=== PATIENT | male | born 1965 | race Caucasian/White ===

== ENCOUNTER 2018-08-22 12:24 | Inpatient (IN) | payer MEDICAID, SELFPAY ==
[2018-08-22 13:32] LABS: Mean Corpuscular Hemoglobin 27.9 pg (27.0-31.0); Mean Corpuscular Volume 87.1 fL (78.0-98.0); Mean Platelet Volume 7.9 fL (7.4-10.4); Platelet Count 266 thou/uL (130-400); RBC Distribution Width 14.2 % (11.5-14.5); Red Blood Cell (RBC) Count 5.01 mill/uL (4.70-6.10); White Blood Cell (WBC) Count 10.9 thou/uL (4.8-10.8)
[2018-08-22 13:39] LABS: PTT 26.9 SEC (22.9-36.1); Prothrombin Time 13.1 SEC (12.0-14.7)
[2018-08-22 13:44] LABS: Band 4 % (5-11); Eosinophils 1 % (0-10); Lymphocytes 19 % (21-51); MDiff Complete? YES; Metamyelocyte 1 % (0-0); Monocytes 2 % (0-10); Myelocyte 5 % (0-0); Neutrophil 67 % (42-75); PLT Morphology Comment Appears Adequate; RBC Morphology Normal; Reactive Lymphocytes 1 % (0-10)
[2018-08-22 13:58] LABS: ALT (SGPT) 50 U/L (8-55); AST (SGOT) 34 U/L (5-34); Albumin 4.4 g/dL (3.5-5.0); Alkaline Phosphatase 72 U/L (40-150); Anion Gap 14 mmol/L (10-20); BUN (Urea Nitrogen) 10 mg/dL (8.4-25.7); Bilirubin, Total 0.2 mg/dL (0.2-1.2); CKMB 2.9 ng/mL (0-6.6); Calc. Creatinine Clearance 0 mL/min (70-130); Calcium 9.4 mg/dL (7.8-10.44); Carbon Dioxide 22 mmol/L (22-29); Chloride 101 mmol/L (98-107); Estimated GFR-MDRD 76; Globulin 2.9 g/dL (2.4-3.5); Glucose 125 mg/dL (70-105); Potassium 4.6 mmol/L (3.5-5.1); Protein, Total 7.3 g/dL (6.0-8.3); Sodium 132 mmol/L (136-145); Troponin I Less than 0.010 ng/mL (< 0.028)
[2018-08-22 14:56] LABS: Base Excess-Venous 0.8 mmol/L (0 (+/- 2.5)); Bicarbonate (HCO3v) 22.1 mmol/L (1.0-85.0); Calcium, Ionized 0.96 mmol/L (1.12-1.32); Hemoglobin - Calc 16.2 g/dL (12.0-18.0); O2 Tension (PvO2) 99.2 mmHg (35.0-45.0); Potassium 4.7 mmol/L (3.4-4.7); pH (Venous) 7.521 (7.35-7.45); vO2 Saturation-calc 98.5 % (94-98)
--- NOTE | 2018-08-22 14:56 | PDOC.FPRHP ---
- History of Present Illness Chief Complaint: Cancer History of Present Illness: Mr Stevenson is a 53yo male with pmh of tobacco abuse presenting with cc of newly diagnosed cancer. He reports recurrent sinus infections, dyspnea and dry cough since March 2018. Reports seeing PCP and receiving antibiotics and steroids with no improvement. Aug 02 he started having facial swelling and veins popping up on upper chest. This was attributed to steroid side effects. Aug 15 he woke up with 1/2 cup blood on his bed and presented to the [place] ED. There CT was done and pt was found to have a right lung mass and multiple pulmonary emboli in right lung. He was to transfer to [facility] at this time but left AMA because he wanted to go home to see his 8 children and was worried about whether he would live or not. Pt presented to [facility] ER on 08/18/18. CT preformed here showed a 8.3x7.3cm right hilar mass with compression of SVC and innominate veins. Subcutaneous edema of upper chest. 4x4.5cm RUL mass. PE in pulm arteries RUL. Foci in liver. 1.9cm left adrenal mass. Pt also had an episode of SVT to HR 170's with brief runs of Vtach on tele. EKG with AVR HR in 160's. Patient reports they were changing his care plan frequently. Endorses chills, hemoptysis. Denies fevers, wt loss, decreased appetite, or body aches. - Allergies/Adverse Reactions Allergies Allergy/AdvReac Type Severity Reaction Status Date / Time No Known Allergies Allergy Unverified 08/22/18 14:56 - History PMHx: [place] fever 2004, tobacco abuse. PSHx: None FHx: Mother- pancreatic Father- lung cancer 3 brothers- brain cancer (all 3 served in [place] War) Sister- 2- breast and cervical cancer seperate Social: (started age 7) 2ppd smoking hx since age 19, cute back the last couple months due to dyspnea and coughing. Denies drug or alcohol use. Prior hx of alcohol abuse years ago. - Review of Systems General: reports: fever/chills. denies: weight/appetite/sleep changes, night sweats Eyes: denies: eye pain, vision changes ENT: reports: nasal congestion, rhinorrhea Respiratory: reports: cough, congestion, shortness of breath, exercise intolerance Cardiovascular: reports: chest pain. denies: palpitation, edema, paroxysmal nocturnal dyspnea, orthopnea Gastrointestinal: denies: nausea, vomiting, diarrhea, abdominal pain Skin: denies: rashes, lesions Musculoskeletal: denies: pain, tenderness, stiffness Neurological: denies: numbness, syncope, seizure, weakness Psychological: denies: anxiety, depression - Vital signs BP: 120/94 HR: 101 RR: 20 Tmax: 98.7 Pox: 100% on RA Wt: 101kg - Physical Exam Constitutional: NAD, awake, alert and oriented, well developed HEENT: normocephalic and atraumatic, PERRLA, TM's clear and intact, MMM, oropharynx clear Neck: supple -Chest: Varicosities Heart: RRR, no edema -Lungs: inspiratory and expiratory wheezing in all lung walters Abdomen: soft, non-tender, bowel sounds present, other (no hepatomegaly) Musculoskeletal: normal structure Skin: capillary refill <2 seconds -Skin: Tattoos Psychiatric: normal mood and affect, good judgment and insight, intact recent and remote memory FMR H&P: Results - Labs Result Diagrams: 08/23/18 04:48 08/23/18 04:48 Lab results: WBC 10.9 thou/uL (4.8-10.8) H 08/22/18 13:21 Hgb 14.0 g/dL (14.0-18.0) 08/22/18 13:21 Hct 43.7 % (42.0-52.0) 08/22/18 13:21 MCV 87.1 fL (78.0-98.0) 08/22/18 13:21 Plt Count 266 thou/uL (130-400) 08/22/18 13:21 Band Neuts % (Manual) 4 % (5-11) L 08/22/18 13:21 Sodium 132 mmol/L (136-145) L 08/22/18 13:21 Potassium 4.6 mmol/L (3.5-5.1) 08/22/18 13:21 Chloride 101 mmol/L (98-107) 08/22/18 13:21 Carbon Dioxide 22 mmol/L (22-29) 08/22/18 13:21 BUN 10 mg/dL (8.4-25.7) 08/22/18 13:21 Creatinine 1.02 mg/dL (0.6-1.3) 08/22/18 13:21 Glucose 125 mg/dL (70-105) H 08/22/18 13:21 Calcium 9.4 mg/dL (7.8-10.44) 08/22/18 13:21 Total Bilirubin 0.2 mg/dL (0.2-1.2) 08/22/18 13:21 AST 34 U/L (5-34) 08/22/18 13:21 ALT 50 U/L (8-55) 08/22/18 13:21 Alkaline Phosphatase 72 U/L (40-150) 08/22/18 13:21 CK-MB (CK-2) 2.9 ng/mL (0-6.6) 08/22/18 13:21 Serum Total Protein 7.3 g/dL (6.0-8.3) 08/22/18 13:21 Albumin 4.4 g/dL (3.5-5.0) 08/22/18 13:21 FMR H&P: A/P - Problem List (1) SVC syndrome Current Visit: Yes Status: Acute Code(s): I87.1 - COMPRESSION OF VEIN (2) Lung cancer Current Visit: Yes Status: Acute Code(s): C34.90 - MALIGNANT NEOPLASM OF UNSP PART OF UNSP BRONCHUS OR LUNG (3) Pulmonary emboli Current Visit: Yes Status: Acute Code(s): I26.99 - OTHER PULMONARY EMBOLISM WITHOUT ACUTE COR PULMONALE (4) Tobacco abuse Current Visit: Yes Status: Acute Code(s): Z72.0 - TOBACCO USE - Plan Mr Stevenson is a 53yo male with pmh of tobacco abuse with suspected lung cancer admitted for SVC and pulmonary embolism. SVC syndrome - Consulted CV surgery, apprec recs - Plan to obtain and have radiology read OSH imaging - OSH recommended external beam radiation to address SVC syndrome while awaiting tissue diagnosis - Biopsy was not preformed at OSH, Pt will need workup and diagnosis of suspected lung cancer - SVC syndrome likely improve with chemo and radiation therapy, again need imaging to further evaluate - Radiation oncology consulted Multiple PE's - CTA preformed at [facility] with marked attenuation right main pulm artery with emboli in branches to right middle lobe and occlusion of branches to the right upper lobe with subsegmental emboli also in right lower lobe. - Had been receiving therapeutic lovenox at OSH - No evidence of DVTs in either lower extremity - Continue therapeutic lovenox Suspected Lung cancer - CTA at OSH: Soft tissue mass right hilum extending into right superior mediastinum contiguous with mediastinal adenopathy with marked narrowing and invasion of right mainstem bronchus. 8.3x7.3cm right hilar mass with significant compression of SVC and innominate veins. Subcutaneous edema of upper chest. 4x4.5cm RUL mass. - Will need tissue biopsy for diagnosis - Oncology consulted, apprec recs - Radiation oncology consulted SVT - SVT 08/19 admission at [facility] - Was on Amiodarone gtt and digoxin at briefly at OSH then switched to PO amiodarone - Will restart Amiodarone 200mg BID - Will admit to tele Hypoenhancing liver lesions - Suspicious for metastatic disease New onset A-fib in setting of PE/lung mass & SVC compression - Echo 08/19/18: no RB strain or pericardial effusion. EF 45-50% Tobacco Abuse - Nicotine patch 21mg - Counseled on cessation Code Status: FULL DVT ppx: therapeutic lovenox FMR H&P: Upper Level - Pertinent history This is a 53 yo M who presents to this ED after leaving AMA from [facility] in [facility] earlier today. He had been transferred to that facility after being diagnosed with SVC syndrome secondary to lung mass in an in [place]. While hospitalized he was also found to have multiple liver lesions. No tissue samples have been obtained, however the working diagnosis at [facility] was a primary lung ca with mets to liver. Due to frustrations with changes in the treatment and diagnostic plan, pt left [place] and presented here. During the hospital stay it was noted that the patient had multiple runs of VTAC and SVT. This was controlled with amiodarone 200 BID Today he complains of cough and increased work of breathing. He has had a prior episode of hemoptysis in June. He has periodic head and neck edema, though none today. PMHx none Social hx - 80 pack year hx of smoking. Denies etoh or illicit drugs. - Pertinent findings Vitals: See wedding planning internship note PE General A&O x3, no acute distress HEENT: No edema noted. Atraumatic. No palpable neck mass CV: RRR no murmur Chest: Wheezing throughout. Enlarged superficial blood vessels on upper chest Extremities: UE have normal ROM, strength, and sensation. No edema noted. Clubbing in all digits. LE WNL Neuro: no focal deficits. CN II-XII grossly intact - Plan Date/Time: 08/22/18 1451 I, Tye Combs DO, have evaluated this patient and agree with findings/plan as outlined by wedding planning internship resident. Pertinent changes/additions are listed here. SVC syndrome - secondary to lung mass per outside rads read. - Onc/Rads onc have been consulted from ED, appreciate recommendations - currently asymptomatic PE - Multiple right sided PEs ID'd in outside facility. Currently hemodynamically stable with normal O2 saturation. - Start therapeutic lovenox until plan for biopsy is established then plan to move to oral anticoagulation Hx of VT/SVT - continue amiodarone, monitor on tele Suspected lung ca with metastatic disease - Plan for tissue dx pending Onc recommendations - Provide cough suppression for symptomatic control Tobacco abuse - nicotine replacement patch PPx Therapeutic lovenox Diet regular Code full Attending Addendum - Attending Addendum Date/Time: 08/22/18 5262 I personally evaluated the patient and discussed the management with Dr. Carolina and Dr. Combs I agree with the History, Examination, Assessment and Plan documented above with any addition or exceptions noted below. Unfortchant 53 yo male presents to ER after leaving an outside facility for evalution of metastatic cancer Patient's records from outside facility reviewed. Patient without any new complaints. Patient with SVC syndrome, VTE related by cancer, likely primary lung with mets to liver. Have requested images but so far only reports available. Consulted CT, Onc, Radiation Onc, Pulm. Concern for dysrrhymias per records but patient stated has not started Amnio. Will place on tele and discuss with previous cardiology team about need for antiarrhymia. Consult cards as needed. Monitor closely. Alvaro
[2018-08-22] MEDS ORDERED: Ondansetron ODT 4 MG TAB PO PRN (17:23)
[2018-08-22 19:06] VITALS: BMI 27.9
[2018-08-22] MEDS: Nicotine 21 MG PATCH TD SCH (21:00)
[2018-08-22] MEDS: Amiodarone 200 MG TAB PO SCH (21:02)
[2018-08-22] MEDS: Enoxaparin Sodium 100 MG/ML SYRINGE SC SCH (21:02)
[2018-08-22] MEDS: guaiFENesin/Codeine Phosphate 200 mg/20 mg 10 ml UD Cup PO PRN (21:03)
[2018-08-22 21:33] LABS: Hemoglobin 13.6 g/dL (14.0-18.0); Platelet Count 279 thou/uL (130-400)
[2018-08-22] MEDS: Acetaminophen/Codeine 30-300mg Tablet PO PRN (23:19)
--- NOTE | 2018-08-23 02:14 | CON ---
DATE OF CONSULTATION: 08/22/2018 REASON FOR CONSULTATION: Mr. 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 I was asked to see him for consideration of radiation therapy. HISTORY OF PRESENT ILLNESS: Mr. Stevenson apparently was feeling well until about February or March when he began declining. More recently, he was seen in the emergency room with complaints of increasing shortness of breath and facial swelling and cough. He is having difficulty lying flat. He apparently had a CT angiogram, which showed a right upper lobe lung mass as well as extensive mediastinal adenopathy and compression of the superior vena cava. Pulmonary emboli were noted. There were also some low attenuation foci in the liver, concerning for possible metastatic disease. He had a left adrenal nodule of 1.9 cm. He apparently left the emergency room against medical advice as he was advised to be admitted to the hospital for further workup and evaluation. He returned to the emergency room in [place] the next day and was admitted to [facility] in [place] for workup and evaluation. This was on 08/18/2018. While there, he had a CT scan of the abdomen and pelvis, which showed multiple enhancing lesions in the liver consistent with possible metastatic disease. There was an indeterminate nodule in the left adrenal gland , measuring 1.5 cm. He was placed on Lovenox and was seen by Pulmonology and Oncology and Radiation Oncology. Apparently, there were plans to perform a biopsy and possibly initiate radiation therapy somewhat emergently. However, the patient became agitated because he felt that the plan was changing and he was not being told the truth. He never initiated radiation and never had a biopsy. This morning, he checked out of the hospital AMA and subsequently came to the emergency room here at [place] where he was admitted for workup and evaluation. He continues to report shortness of breath. His states his facial swelling began before 08/02. He has some cough and apparently had an episode of hemoptysis in the past. He denies any weight loss. He is eating and swallowing without difficulty. I am seeing him today to discuss his options with radiation therapy. PAST MEDICAL HISTORY: [place] fever in 2004. He denies other medical or surgical issues. MEDICATIONS: Amiodarone, Lovenox, Robitussin, nicotine patch, and Zofran p.r.n. ALLERGIES: No known medical allergies. SOCIAL HISTORY: He was living in [place], [place], with his . He has multiple children at home. 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 He is uninsured, but states that he is applying for Medicaid. He smoked up to 2 packs per day and did so from an early age up until shortly before admission. He is basically not smoked since admission. He denies any alcohol use at the present time, although apparently drink more heavily in the past. FAMILY HISTORY: His mother had pancreatic cancer. His father had lung cancer. He has had 2 brothers with brain tumors. He has had a sister with breast cancer and a sister with cervical cancer. REVIEW OF SYSTEMS: Twelve system review of systems is performed and is otherwise negative. PHYSICAL EXAMINATION: VITAL SIGNS: Height 63 inches, weight 223.8 pounds, blood pressure is 98/63, pulse is 107, respirations are 20, temperature is 98.0, O2 saturation is 95%. GENERAL: He is alert and oriented, and in mild respiratory distress. He looks surprisingly good for the history. Karnofsky performance status is 70%. He is sitting up and coughs frequently in my presence. EYES: Pupils are equal, round, reactive to light and extraocular movements are intact. ENT: Oral cavity and oropharynx normal without lesion or erythema. Palate elevates symmetrically. Gingiva is intact. NECK: He does have edema in the neck and mild edema in the face. There is no preauricular, submandibular, cervical, supraclavicular adenopathy. No thyromegaly. Larynx is midline. LUNGS: Breathing mildly labored. Clear to auscultation and percussion. CARDIOVASCULAR: Tachycardic without murmur. EXTREMITIES: No lower extremity edema. Extremities without cyanosis or clubbing. BACK: No tenderness on fist percussion of his spine. LYMPHATIC: No axillary or inguinal adenopathy. ABDOMEN: Exam is difficult because patient cannot lie completely flat. He has no palpable mass or hepatosplenomegaly. I am unable to feel his liver. Soft, nontender, nondistended. SKIN: Without rash or purpura. NEUROLOGIC: Cranial nerves II through XII are grossly intact. Motor strength is 5/5 in both upper and lower extremities in all muscle groups tested. Reflexes and gait were not tested. RADIOLOGIC: CT angiogram was performed in [place] and a CT of the abdomen and pelvis were performed at [facility] in [place]. I do have reference to those reports, but do not have those images available to review. Apparently, he had a 4.5 cm mass in the right upper lobe of the lung. There was mediastinal adenopathy that was causing narrowing and invasion of the right main stem bronchus, measuring 8.3 cm. There was a large right hilar mass. There was superior vena cava syndrome. There were pulmonary emboli. There were multiple lesions in the liver consistent with metastatic disease. He had a left adrenal nodule measuring 1.5 cm of unknown significance. LABORATORY FINDINGS: CBC revealed a white blood cell count of 10,900 with a hemoglobin of 14.0, hematocrit of 43.7, and platelet count of 266,000. Chemistry group revealed sodium of 132. His glucose is 125. His creatinine was 1.02 with a GFR of 76. Liver function tests were normal. Again, no biopsy has been performed. ASSESSMENT: Mr. 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 His symptoms have been slow in onset and he has had evidence of superior vena cava syndrome for more than 3 weeks. He apparently also has some issues with cardiac arrhythmia and has had pulmonary emboli. PLAN: This is certainly a very difficult and challenging case. The patient was being worked up in [place] with plans for treatment including biopsy and the start of treatment there when he became disgruntled with the medical staff and left AMA and promptly came here for admission. In talking to him, I get different stories. He felt that the doctors were in conflict with one another on how to treat him which is one of the reasons why he left. He felt that the radiation doctor there wanted to initiate radiation therapy that they were then going to biopsy his liver. However, he felt the medical oncologist there wanted to hold off on radiation therapy until the biopsies and pathology were obtained. I had a long discussion with Mr. Stevenson and his regarding the difficulty of the situation and diagnosis. I explained how critical obtaining pathology is to determining the right treatment. I had a mar discussion with them that he likely has stage IV cancer and if that is confirmed that this would not be expected to be curable. I explained the two main types of lung cancer, that being small cell lung cancer and the other being non-small cell lung cancer. I would be hopeful that this would be small- cell cancer of the lung, which can respond fairly rapidly to chemotherapy. However, it can be non-small cell cancer which does not have a rapid response rate to treatment. Anyway, biopsy would help to sort this out. Also, complicating the factors, I do not have any images to review at the present time. His states that she has his original CT scan from [place] on disc and that she would bring this to me tomorrow to review. He is going to be seen by medical oncology and I suppose he will have other consultations, possibly with Pulmonology and Cardiology as we tried to obtain tissue diagnosis. He needs his pulmonary emboli treated, but we also need to do a biopsy to obtain the tissue diagnosis. We will likely need to initiate palliative radiation therapy at some point in the near future. We could initiate palliative radiation therapy and if he turns out to have small cell lung cancer, can then switch over to chemotherapy and discontinue the radiation. If he has non-small cell lung cancer, then we can continue the radiation, although prognosis would be more grave. Again, I had a honest discussion with them that he likely does not have curable disease. We can treat him palliatively and his survival would depend on the response. I discussed with them, the logistics, benefits, and risk of radiation therapy. The simulation procedure was discussed in depth. This is going to be quite challenging because he cannot lie very flat. He is going to have to lie somewhat flat, to be able to do radiation therapy. Side effects would include but not be limited to skin reaction, fatigue, lower blood counts, difficulty or pain with swallowing, weight loss, possible radiation pneumonitis, and possible damage to any other structure which receives radiation therapy. He voices understanding of the risk of radiation therapy and likely is going to be agreeable to proceed if we decide to pursue this somewhat emergently. We will wait for the other consultations and also discussed with them and hopefully I will be able to review his CT scan, so that we can then make a decision on how to proceed with treatment. Thank you for this interesting consultation. MATT
[2018-08-23 05:35] LABS: ALT (SGPT) 51 U/L (8-55); AST (SGOT) 28 U/L (5-34); Albumin 4.3 g/dL (3.5-5.0); Alkaline Phosphatase 68 U/L (40-150); Anion Gap 14 mmol/L (10-20); BUN (Urea Nitrogen) 13 mg/dL (8.4-25.7); Bilirubin, Total 0.2 mg/dL (0.2-1.2); Calc. Creatinine Clearance 135 mL/min (70-130); Calcium 9.5 mg/dL (7.8-10.44); Carbon Dioxide 26 mmol/L (22-29); Chloride 101 mmol/L (98-107); Estimated GFR-MDRD 88; Globulin 2.9 g/dL (2.4-3.5); Glucose 147 mg/dL (70-105); Potassium 4.5 mmol/L (3.5-5.1); Protein, Total 7.2 g/dL (6.0-8.3); Sodium 136 mmol/L (136-145)
[2018-08-23 05:47] LABS: Band 2 % (5-11); Hemoglobin 13.8 g/dL (14.0-18.0); Lymphocytes 7 % (21-51); MDiff Complete? YES; Mean Corpuscular HGB CONC 31.5 g/dL (32.0-36.0); Mean Corpuscular Hemoglobin 27.6 pg (27.0-31.0); Mean Corpuscular Volume 87.5 fL (78.0-98.0); Monocytes 1 % (0-10); Neutrophil 90 % (42-75); PLT Morphology Comment Appears Adequate; Platelet Count 270 thou/uL (130-400); RBC Distribution Width 14.3 % (11.5-14.5); RBC Morphology Normal; Red Blood Cell (RBC) Count 5.01 mill/uL (4.70-6.10); White Blood Cell (WBC) Count 10.6 thou/uL (4.8-10.8)
--- NOTE | 2018-08-23 08:55 | PDOC.FM ---
- Subjective Subjective: 53 yo M here for SVC syndrome secondary to lung mass. Pt doing well this morning. States that his cough is controlled. He denies SOB or CP. No new symptoms. Currently waiting for his to return from home with a disc of his previous CT - Objective Vital Signs & Weight: Vital Signs (12 hours) Temp Pulse Resp BP Pulse Ox 08/23/18 07:42 98.7 F 90 18 146/90 H 97 08/23/18 03:47 97.6 F 91 20 145/79 H 98 Weight Weight 101.378 kg I&O: 08/22/18 08/23/18 08/24/18 06:59 06:59 06:59 Intake Total 3000 Balance 3000 Result Diagrams: 08/23/18 04:48 08/23/18 04:48 EKG Reviewed by me: Yes <Tye Combs - Last Filed: 08/23/18 08:53> - Objective Vital Signs & Weight: Vital Signs (12 hours) Temp Pulse Resp BP Pulse Ox 08/24/18 08:00 97.9 F 99 16 115/78 97 08/24/18 03:45 98.6 F 86 18 113/68 96 Weight Weight 101.378 kg I&O: 08/23/18 08/24/18 08/25/18 06:59 06:59 06:59 Intake Total 3000 1680 Output Total 1800 Balance 3000 -120 Result Diagrams: 08/23/18 04:48 08/23/18 04:48 <Liam Mckee - Last Filed: 08/24/18 09:12> Phys Exam - Physical Examination Constitutional: NAD HEENT: PERRLA, moist MMs No head/neck edema noted Neck: no nodes, no JVD Respiratory: clear to auscultation bilateral Cardiovascular: RRR, no significant murmur Gastrointestinal: soft, non-tender, no distention Musculoskeletal: no edema Neurological: non-focal, normal sensation, moves all 4 limbs Lymphatic: no nodes Psychiatric: normal affect, A&O x 3 <Tye Combs - Last Filed: 08/23/18 08:53> Dx/Plan (1) SVC syndrome Code(s): I87.1 - COMPRESSION OF VEIN Status: Acute (2) Lung cancer Code(s): C34.90 - MALIGNANT NEOPLASM OF UNSP PART OF UNSP BRONCHUS OR LUNG Status: Acute (3) Pulmonary emboli Code(s): I26.99 - OTHER PULMONARY EMBOLISM WITHOUT ACUTE COR PULMONALE Status : Acute (4) Tobacco abuse Code(s): Z72.0 - TOBACCO USE Status: Acute - Plan Plan: SVC syndrome - secondary to lung mass per outside rads read. - After discussion with rads onc, pt will likely undergo palliative radiation vs chemo pending tissue dx. They are working to set that up today or tomorrow. - currently asymptomatic. Continue steroids for symptom control. PE - Continue therapeutic lovenox. Will hold as needed to complete biopsy which will likely come from liver mets Hx of VT/SVT - continue amiodarone, monitor on tele Suspected lung ca with metastatic disease - Plan for tissue dx pending Onc recommendations - Provide cough suppression for symptomatic control - heme/rads onc have both been consulted. Plan to get tissue dx while admitted. Will also likely start radiation today. Tobacco abuse - nicotine replacement patch Dispo: Guarded. Pt is currently stable, however has grave diagnosis. Pt will need to be inpatient for tissue dx, then will work to establish outpatient follow up. LOS greater than 48 hours. <Tye Combs - Last Filed: 08/23/18 08:53> Attending Addendum - Attending Addendum Date/Time: 08/24/1812 I personally evaluated the patient and discussed the management with Dr. Combs , yesterday. I agree with the History, Examination, Assessment and Plan documented above with any addition or exceptions noted below. <Liam Mckee - Last Filed: 08/24/18 09:12>
[2018-08-23] MEDS: Amiodarone 200 MG TAB PO SCH ×2 (09:30→20:29)
[2018-08-23] MEDS: Enoxaparin Sodium 100 MG/ML SYRINGE SC SCH ×2 (09:30→20:27)
[2018-08-23] MEDS: Sodium Chloride 0.9% 10 ML ONE ×3 (09:31→22:07)
--- NOTE | 2018-08-23 12:19 | CON ---
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 HISTORY OF PRESENT ILLNESS: A 53-year-old male with superior vena cava syndrome presenting to the hospital for evaluation. The patient states he was at his baseline of health until February or March of this year when his health began declining and he was seen by his primary care physician and treated for supposedly a pleural effusion plus or minus pneumonia with antibiotics. At that time, he was having fever and chills which resolved with antibiotics. However, his breathing and cough did not improve and he began having veins appear on his chest and some swelling in his neck and face. He states his PCP said that this was normal. He presented to an outside hospital and had a CT angiogram that showed a right upper lobe lung mass, extensive mediastinal adenopathy and compression of the SVC along with pulmonary emboli. There was also some foci in the liver concerning for metastatic disease along with a left adrenal nodule of 1.5 cm. He left the ER against medical advice and returned the next day to the hospital in [place] and then admitted to [facility] in [place] for workup and evaluation. This was on 08/18/2018. A CT abdomen and pelvis at [facility] showed multiple enhancing lesions in the liver consistent with possible metastatic disease. He was placed on Lovenox for the pulmonary embolism and seen by Pulmonology, Oncology and Radiation Oncology at this hospital. The patient states there were plans for possible biopsy and possible initiation of radiation. However, the patient again left AMA and came to the emergency room at [facility]. Today, the patient complains of shortness of breath and ongoing cough along with continued neck and face swelling and worsening of the veins in his chest. He denies upper extremity swelling, pain, numbness or weakness. He denies any ongoing fevers, night sweats or any unexpected weight loss in the last couple of months. He denies headaches, nausea, vomiting, change in vision or imbalance when he walks. The patient has smoked 2 packs per day since approximately age 7. He was seen with his at the bedside. PAST MEDICAL HISTORY: [place] spotted fever, pulmonary embolism, SVC syndrome. PAST SURGICAL HISTORY: No surgeries. MEDICATIONS: Reviewed. ALLERGIES: No known medical allergies. SOCIAL HISTORY: Two packs per day smoking history since age 7. No alcohol. FAMILY HISTORY: Mother pancreatic cancer; father, lung cancer. Three brothers with brain cancer, all of whom served in the [place] War. Sister with breast and cervical cancer. SOCIAL HISTORY: The patient lives in [place], [place], with his and has multiple children at home. He currently does not work. He is uninsured, but applying for Medicaid. REVIEW OF SYSTEMS: A 10-point review of systems negative except as per HPI. PHYSICAL EXAMINATION: VITAL SIGNS: Temperature 98.7, pulse 90, respirations 18, satting 97% on room air, blood pressure 146/90. GENERAL: The patient is sitting up in bed in no acute distress. HEENT: Pupils are round, reactive to light. No scleral icterus. NECK: He has mild edema in the neck and face, right greater than left. There is no palpable lymphadenopathy. CHEST: Visible distended veins across his upper chest bilaterally, nontender. CARDIAC: Regular, S1, S2. Regular rate and rhythm, no murmurs, rubs or gallops. LUNGS: Mildly labored breathing with rhonchorous signs in upper lobes and lower right lobe, clear to auscultation left lower lobe. ABDOMEN: Obese, soft, nondistended, nontender. LYMPHATIC: No axillary, inguinal, cervical or supraclavicular lymphadenopathy. SKIN: As above, otherwise no rashes. NEUROLOGIC: Nonfocal. Cranial nerves II-XII grossly intact. LABORATORY DATA: White blood cells 10.6, hemoglobin 13.8, platelets 270, metamyelocytes 1%, myelocytes 5%, neutrophils 90%. Sodium 136, BUN 13, creatinine 0.9, bilirubin 0.2, AST 28, ALT 51, alkaline phosphatase 68. Troponin less than 0.010. IMAGING DATA: CT angiogram performed in [place] and CT abdomen and pelvis performed at [facility] in [place]. CT angiogram showed a 4.5 cm mass in the right upper lobe of the lung with mediastinal adenopathy causing narrowing and invasion of the right main stem bronchus measuring 8.3 cm, large right hilar mass and superior vena cava syndrome with multiple pulmonary emboli. Multiple lesions in the liver consistent with metastatic disease. Left adrenal nodule measuring 1.5 cm of unknown significance. 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 His symptoms have progressively worsened over the last 3 weeks and initially presented a few months ago. The patient is currently admitted to telemetry due to SVT. His course is also complicated by pulmonary embolism and he is currently on Lovenox. The patient has left AMA twice in the last few days from different hospitals, one in [place], one in [place]. The patient states he is ready to be treated for this cancer. The patient likely has either small cell lung cancer or non-small cell lung cancer. Biopsy is necessary prior to initiation of chemotherapy or radiation. Due to the patient's SVC syndrome and SVT it is possible to start the patient on radiation if we are able to biopsy the liver. If not, we will need to biopsy the lung. The patient's brought in CT angiogram of the chest. The CT angio of the chest shows a few lesions in the liver, but does not give a clear view and so we are unable to determine if these lesions are biopsy accessible. For this reason, we will do a CT of the abdomen with liver protocol in order to gauge the possibility of biopsy via Interventional Radiology. If this is feasible, then we can start radiation to the lung mass while awaiting pathology from the liver. If this is not feasible, then we will need to biopsy the lung mass prior to initiation of any therapy. Further treatment with we repeated the CT scan and patient has multiple liver lesions however they are very small. I discussed the scan with IR and it will be difficult to biopsy one of the liver lesions but they will take the patient tomorrow to try. If they are unable to biopsy or get a bad sample then he will require lung biopsy and I have spoken to Dr. Arias about this and he will plan possible biopsy for Tuesday. Chemotherapy will depend on final pathology of the biopsy, however we may start XRT prior to final results. The patient will also require an MRI of the brain; however, this is not urgent. I have discussed this case with Dr. Flynn. Lovenox will also need to be held prior to biopsy. His morning dose tomorrow should be held in anticipation for liver biopsy tomorrow. I will continue to follow this patient. Thank you for the consult. MATT
[2018-08-23] MEDS ORDERED: Iopamidol 370 76% 100 ML VIAL ONE (14:07)
--- NOTE | 2018-08-23 15:07 | CT ---
CT ABDOMEN WITH AND WITHOUT IV CONTRAST AND CT PELVIS WITH IV CONTRAST: HISTORY: Lung cancer with liver mets. COMPARISON: None. FINDINGS: The lung bases are clear. There are multiple low-density lesions in the liver, the largest in the ri ght lobe measuring about 1.5 cm and in the left lobe measuring 1.2 cm. The spleen, pancreas, right a drenal gland, and both kidneys appear normal. There is a 1.5 cm left adrenal nodule with attenuation values of 20 Hounsfield units on the precontrast, 65 Hounsfield units in the arterial phase, and 53 Hounsfield units on the portal venous phase. No free air, free fluid, or lymphadenopathy is seen in the abdomen or pelvis. There are vascular cristhian cifications without evidence of aneurysmal dilatation of the abdominal aorta. The small bowel loops are not abnormally dilated. There is sigmoid diverticulosis. There are degenerative changes in the spine. No osteolytic or osteoblastic lesions are identified. No calcified gallstones are seen. IMPRESSION: 1. Liver metastases. 2. Indeterminate 1.5 cm left adrenal nodule. 3. Sigmoid diverticulosis. POS: LESLYE
--- NOTE | 2018-08-23 17:00 | EKG ---
Test Reason : Blood Pressure : / mmHG Vent. Rate : 104 BPM Atrial Rate : 104 BPM P-R Int : 132 ms QRS Dur : 100 ms QT Int : 328 ms P-R-T Axes : 067 071 061 degrees QTc Int : 431 ms Sinus tachycardia Nonspecific ST abnormality Abnormal ECG Confirmed by DR. Maicol GOODEN MD ([id number]) on 08/23/2018 5:00:26 PM Referred By: Confirmed By:DR. Maicol GOODEN MD
[2018-08-23] MEDS: Nicotine 21 MG PATCH TD SCH (20:28)
[2018-08-23] MEDS: guaiFENesin/Codeine Phosphate 200 mg/20 mg 10 ml UD Cup PO PRN (20:34)
[2018-08-23] MEDS ORDERED: Bismuth Subs 17.5mg/mL Susp 120 ML BOT PO PRN (20:52)
[2018-08-23] MEDS ORDERED: Nicotine 14 MG PATCH TD SCH (21:00)
[2018-08-23] MEDS: Acetaminophen/Codeine 30-300mg Tablet PO PRN (22:13)
--- NOTE | 2018-08-24 03:44 | CON ---
DATE OF CONSULTATION: 08/23/2018 SERVICE: Pulmonary Medicine. REASON FOR CONSULTATION: Pulmonary mass. HISTORY OF PRESENT ILLNESS: The patient is a 53-year-old scared, but belligerent white male with past medical history significant for a greater than 96-[id number] history of smoking. He presented to the hospital after having a cough that has been present since March. He was given some antibiotics and steroids, but the cough never resolved. Ultimately, imaging was performed. This demonstrated a pulmonary mass with a superior vena cava syndrome. He also had widespread mediastinal lymphadenopathy, liver lesions, and an adrenal lesion. I was contacted to see if the adrenal lesion or liver lesion or biopsies of these lesions could be obtained in a minimally invasive way. Ultimately, they could not. As such, I was called for an opinion to see whether or not this could be assessed from bronchoscopic approach. The patient denies any current fevers, chills, nausea or vomiting. He is very angry that I am calling on him at this time. He was angry that the CT of the chest was not repeated today despite the fact that we actually have a CT of the chest on disc. His took the disc home and so I am not able to review that. These things were performed in an outside facility. He is left at least one facility AMA while this workup was in progress. PAST MEDICAL HISTORY: 1. [place] spotted fever in 2004. 2. Tobacco abuse. 3. Metastatic process, currently unknown. PAST SURGICAL HISTORY: None. FAMILY HISTORY: Mom had pancreatic cancer. Dad with lung cancer. Three brothers have brain cancer. Two sisters have a breast and cervical cancers. SOCIAL HISTORY: He has a 71-[id number] history of smoking, but quit a couple months ago because of dyspnea. He denies any alcohol or significant illicit drug use. He has a remote history of alcohol abuse. He has no exposure to chemicals, dust, asbestos or tuberculosis. ALLERGIES: No known drug allergies. MEDICATIONS: List of his inpatient medications was reviewed. No specific updates were made at this time. REVIEW OF SYSTEMS: General, head, ears, eyes, nose, throat, cardiovascular, respiratory, GI, , musculoskeletal, neurologic and skin is negative except as mentioned in HPI. PHYSICAL EXAMINATION: VITAL SIGNS: Afebrile, pulse 97, blood pressure 143/69, respirations 18, saturation 97% on room air. GENERAL: The patient is awake and alert, in no apparent distress. LUNGS: Decent air entry. There is no prolonged expiratory phase. There is no wheezing, rhonchi, or crackles identified. HEART: Normal rate, regular. ABDOMEN: Soft, nontender, nondistended. Bowel sounds are positive. MUSCULOSKELETAL: No cyanosis. There is no pitting edema. There is some clubbing in the bilateral upper extremities. NEUROLOGIC: Grossly nonfocal. : No [place]. LABORATORY DATA: CBC is grossly unremarkable. Neutrophil count is 90% with a normal band count. INR 1.4. A pH of 7.51, pCO2 of 27, pO2 of 99. Basic metabolic profile and liver function studies are essentially unremarkable. LDH is 786. IMAGING: CT of the abdomen and pelvis demonstrates liver metastases, indeterminate at 1.5 cm left adrenal nodule, and sigmoid diverticulosis. ASSESSMENT: 1. Pulmonary mass with mediastinal lymphadenopathy, liver lesions, and adrenal lesion. 2. Tobacco abuse. 3. History of alcohol abuse. DISCUSSION AND PLAN: I offered the patient a bronchoscopy. He said to me that under no circumstances would he ever go through any procedure that required a tube going down his throat. He also indicates that he would not even want a procedure that would require intubation for the same issue. I tried to talk to him about his concerns surrounding this event. I reassured him that he would not be awake during this procedure, but then he became angry suggesting that he would never have this type of a procedure done. He expressed anger over being told that there is a possibility that Interventional Radiology could do a transcutaneous sample. I have told him that they may not safely be able to get a reliable tissue of sample from the liver or the adrenal lesion. I have not reviewed the CT of the chest. I did suggest that IR could potentially get a transcutaneous sample through the chest, but that this would result in a 15% to 20% chance of a pneumothorax, or life threatening bleed. He understands that if these types of complications were to occur, he would be laid up in bed hooked up to a vacuum container for a protracted course. Furthermore, bleeding could be life threatening, necessitating an emergent thoracotomy which would certainly require mechanical ventilation, and a chest tube placement once again. He understands that bronchoscopy is the best way to get a reliable piece of tissue at the least risk to the patient. Even still, he does not want to entertain this possibility. He is going to talk to his about it at some point in the future. If at any point, I can be of any assistance from a procedural standpoint, please give me a phone call back. For the time being, however, he has no further requirements for Pulmonary or Critical Care opinion, and I will sign off. 70 minutes have been devoted to this patient in various activities. I personally reviewed all imaging studies and laboratory data noted within this document. For fifty percent of this time, I was interacting with the patient at the bedside or coordinating care with the care team. For the remainder of the time I was immediately available to the patient in the hospital unit. MATT
[2018-08-24] MEDS: Amiodarone 200 MG TAB PO SCH (08:23)
--- NOTE | 2018-08-24 08:36 | PDOC.FM ---
- Subjective Subjective: Pt seen at bedside this am resting comfortably. He was seen by Dr Arias last night who recommended a bronch for biopsy for biopsy. Pt stated that under no circumstances would he consent for a bronch and again threatened to leave ama. Otherwise, pt is doing well with no new complaints. Per nursing, there were no issues over night. - Objective Vital Signs & Weight: Vital Signs (12 hours) Temp Pulse Resp BP Pulse Ox 08/24/18 08:00 97.9 F 99 16 115/78 97 08/24/18 03:45 98.6 F 86 18 113/68 96 Weight Weight 101.378 kg I&O: 08/23/18 08/24/18 08/25/18 06:59 06:59 06:59 Intake Total 3000 1680 Output Total 1800 Balance 3000 -120 Result Diagrams: 08/23/18 04:48 08/23/18 04:48 <Tye Combs - Last Filed: 08/24/18 08:34> - Objective Vital Signs & Weight: Vital Signs (12 hours) Temp Pulse Resp BP Pulse Ox 08/24/18 13:12 97.7 F 102 H 17 129/68 97 08/24/18 08:00 97.9 F 99 16 115/78 97 08/24/18 07:50 97 08/24/18 03:45 98.6 F 86 18 113/68 96 Weight Weight 101.378 kg I&O: 08/23/18 08/24/18 08/25/18 06:59 06:59 06:59 Intake Total 3000 1680 Output Total 1800 Balance 3000 -120 Result Diagrams: 08/23/18 04:48 08/23/18 04:48 <Liam Mckee - Last Filed: 08/24/18 13:42> Phys Exam - Physical Examination Constitutional: NAD HEENT: PERRLA, moist MMs Neck: no nodes, no JVD Respiratory: clear to auscultation bilateral Cardiovascular: RRR, no significant murmur Gastrointestinal: soft, non-tender, no distention Musculoskeletal: no edema, pulses present Neurological: non-focal, normal sensation, moves all 4 limbs Psychiatric: normal affect, A&O x 3 Skin: no rash, normal turgor Deviation from normal: engorged superficial veins on chest <Tye Combs - Last Filed: 08/24/18 08:34> Dx/Plan (1) SVC syndrome Code(s): I87.1 - COMPRESSION OF VEIN Status: Acute (2) Lung cancer Code(s): C34.90 - MALIGNANT NEOPLASM OF UNSP PART OF UNSP BRONCHUS OR LUNG Status: Acute (3) Pulmonary emboli Code(s): I26.99 - OTHER PULMONARY EMBOLISM WITHOUT ACUTE COR PULMONALE Status : Acute (4) Tobacco abuse Code(s): Z72.0 - TOBACCO USE Status: Acute - Plan Plan: Suspected lung ca with metastatic disease - After discussion with rads onc, pt will likely undergo palliative radiation vs chemo pending tissue dx. - Currently heme onc plans on attempting a CT guided liver biopsy today. There is also a plan to start palliative radiation this morning. - Provide cough suppression for symptomatic control - bronch for tissue sample was recommended by pulm, however this was declined by pt - case management for resources has been consulted. SVC syndrome - secondary to lung mass per outside rads read. - currently asymptomatic. Will taper steroids as he is not currently severely obstructed and it is unlikely that he has steroid responsive tumor PE - Continue therapeutic lovenox. Will hold as needed to complete biopsy which will likely come from liver mets Hx of VT/SVT - continue amiodarone, monitor on tele Tobacco abuse - nicotine replacement patch Dispo: Guarded. Pt is currently stable, however has grave diagnosis. Plan for getting a tissue sample is to attempt a liver biopsy today. If this is not completed he will need to revisit the idea of a bronchoscopy. LOS greater than 48 hours. <Tye Combs - Last Filed: 08/24/18 08:34> Attending Addendum - Attending Addendum Date/Time: 08/24/18 [id number] I personally evaluated the patient and discussed the management with Dr. Combs. I agree with the History, Examination, Assessment and Plan documented above with any addition or exceptions noted below. We appreciate the care provided by our specialists Dr Flynn, Interventional Radiology, Heme /Onc, and Dr Arias. Noah and his reviewed the care so far, the recommendations of the specialists, and his their willingness to have a CT biopsy performed. All questions were heard, answered or deferred to a specialist. One of his concerns was breathing at night. He really felt like the IV steroids were working well. We note with his smoking history that he likely has COPD and would benefit from steroids. We will taper his steroids and continue inhaled steroids and symptomatic neb treatments. <Liam Mckee - Last Filed: 08/24/18 13:42>
[2018-08-24 13:12] VITALS: BP 129/68; TEMP 97.7
--- NOTE | 2018-08-24 18:17 | PRG ---
DATE OF SERVICE: 08/24/2018 I saw Mr. Stevenson for about 20 or 25 minutes around 4 o'clock today. I was actually on the floor to see another patient when his asked me to come see him. Mr. Stevenson is a 53-year-old gentleman, who likely has stage IV lung cancer. 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 He does have increasing shortness of breath and some mild facial swelling, but these symptoms have been present for 3 or more weeks and his shortness of breath has been progressive over many months. He has been hemodynamically stable and very stable while here in the hospital. He had actually been in the hospital in [place] and checked out of [facility] in [place] against medical advice before a biopsy was performed and they could start radiation therapy. He immediately drove to our emergency room and was admitted. He states the reason that he left was that the doctors were not being honest with him. I do think Mr. Stevenson has been somewhat difficult in this hospitalization. We had planned to do a biopsy of the liver today. He has multiple lesions in the liver suspicious for liver metastasis, but the lesions are small and they are not in the easiest spot to reach. Nevertheless, we were going to attempt a liver biopsy to get tissue diagnosis. The patient was informed that a liver biopsy would be difficult and that we might not even get the proper tissue diagnosis that we need because of how small the lesions were. The plan was to do the liver biopsy this afternoon, but the patient would not give consent to taking blood products if necessary. Therefore, given the difficulty of the procedure and the risk of bleeding, the interventional radiologist declined to do the biopsy. This upset Mr. Stevenson. Our plan originally had been for him to do a liver biopsy today and then have a bronchoscopy tomorrow to also get a biopsy from the lung. However, the patient did meet with Dr. Arias last night and has refused bronchoscopy. Now, that the liver biopsy has been canceled by Radiology, the patient is threatening to leave against medical advice. Therefore, his saw me in the dinero and asked me to come talk to the patient. I had performed a simulation on the patient this morning in hopes of being able to start radiation once the tissue diagnosis was obtained. I hope that from the liver biopsy today and the bronchoscopy tomorrow that we would have tissue diagnosis by Tuesday and I would be able to start treatment. Therefore, in hopes of being efficient, I did a simulation on him this morning in preparation for that. The asked that we would still start the radiation on Tuesday even without the tissue diagnosis. I therefore had a long discussion with Mr. Stevenson and the . I explained why we need tissue diagnosis. I explained that a tissue diagnosis was imperative and that I could not start any radiation therapy until the tissue diagnosis is obtained. I think that we need tissue diagnosis to confirm that this is lung cancer. If he were to have small cell cancer of the lung, then he would likely get chemotherapy at the same time. Thus tissue diagnosis is essential to him receiving the correct treatment. Clinically, he has been fairly stable during this hospitalization so I do not think we need to emergently start treatment before tissue diagnosis. I wanted to start as soon as I can but it is imperative that we have tissue. Therefore, I told the patient that I could not start radiation therapy until a tissue diagnosis was obtained. I tried to reason with the patient about the liver biopsy and explained why the liver biopsy was difficult and the concern about possible bleeding and how that could potentially be a fatal event if he declined any blood products. I explained that bronchoscopy was much safer. I would hope that since the liver biopsy is not going to be done that he could be reasoned with and would consent to a bronchoscopy tomorrow, so that we might have tissue diagnosis. My expectation would be that he might even be discharged over the weekend and that we would start radiation as an outpatient as soon as we had tissue. That could potentially even be as early as Tuesday. This is why I performed simulation. However, the patient apparently had a family member who had a bad experience with the bronchoscopy in the past. He is absolutely refusing to undergo bronchoscopy. He again is threatening to check out against medical advice. It seems to me that the story of him being in the hospital here at [facility] is proceeding exactly the same as the story at [facility] in [place]. I do not have all the records from that visit, but it appears that they were initially going to do a liver biopsy there, but decided that either the risks were too great or the yield was too low and therefore they decided to change and do a bronchoscopy, which he declined and subsequently prompted him to check out against medical advice there in the hospital. I told him that he needed to stay in the hospital and get the tissue diagnosis. He needed to have the bronchoscopy, so that we could have tissue diagnosis, so that we could not only know what we are treating, but could make sure that his treatment would be correct. I again told him that I could not start radiation therapy until the tissue diagnosis was obtained. I informed him that if he checked out of the hospital here against medical advice that that could potentially be a fatal mistake. Without getting treatment, he would likely have a very short survival , especially since he already has some mild symptoms of superior vena cava syndrome. I told him that if he left the hospital against medical advice, he would likely very quickly. Again, he is threatening to leave against medical advice and actually said that he would go to another hospital in [place] and find someone who would biopsy his liver. I hope that he changes his mind and agrees to the procedure, so that we can treat him correctly. He is going to talk with the Family Practice Residents and Admitting Team, but ultimately may check out against medical advice. MATT
[2018-08-24] MEDS ORDERED: Apixaban 5 MG TAB PO SCH (21:00)
--- NOTE | 2018-08-25 02:01 | DIS-2 ---
DATE OF ADMISSION: 08/22/2018 DATE OF DISCHARGE: 08/24/2018 RESIDENT: Tye Combs DO ADMITTING ATTENDING: Pauline Joaquin M.D. DISCHARGE ATTENDING: Pauline Joaquin M.D. CONSULTATIONS: Dr. Aidan Fry, CV surgery; Dr. Troy Flynn, radiation oncology; Mele Loza MD, heme/onc; Yves Arias MD, pulmonology. PROCEDURES: CT abdomen and pelvis findings of liver metastasis. Multiple low- density lesions and the largest in the right lobe measuring 1.5 cm and left lobe measuring 1.2 cm. Spleen, pancreas, right adrenal gland in both kidneys appeared normal that is 1.5 cm left adrenal nodule with attenuation value of 20 hounsfield units, pre-contrast 65 hounsfield units, and arterial of 53 hounsfield units in the portal venous phase. ADMISSION DIAGNOSES: 1. 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 2. Pulmonary embolism. 3. Tobacco abuse. DISCHARGE MEDICATIONS: Amiodarone 200 mg p.o. b.i.d. and Eliquis 5 mg p.o. b.i.d. HOSPITAL SUMMARY: This is a 53-year-old male who presented to the [facility] after having left [facility] in the [facility]. Prior to arrival in this Emergency Room, he had been diagnosed with a superior vena cava syndrome secondary to a lung mass with metastasis to the liver and PE. He was inpatient for approximately 1 week, where his workup was being conducted; however, the patient became frustrated with what appeared to him to be a consistently evolving plan. Therefore, the patient left [facility] and came to this facility. Upon arrival at this facility, the patient was stable and signs and symptoms of superior vena cava syndrome were minimal. There is initial difficulty in obtaining imaging from the multiple facilities at which he had been prior. The morning following admission, the patient's brought a disk with CT chest, which identified the lung lesions. We were unable, however to obtain the CT abdomen images. Hematology/Oncology and Radiation Oncology and CV Surgery were initially consulted. It was determined that the most appropriate course of action was to obtain a tissue sample for analysis prior to starting any form of cancer treatment. On the first night of the admission, the patient threatened to leave [facility], because he stated that his room was not cool enough and he demanded a room. Efforts were made to change the patient's room at that time and he agreed to stay one night in order to workup his cancer. The following morning, he met with Radiation Oncology and Hematology/Oncology and it was decided to either attempt to get a tissue sample from the liver; however , a CT was first be taken in order to better characterize the abdomen, as we did not have those films. A CT was conducted on second day of admission with results as above. It was determined that time of discussion was between Radiation Oncology and Interventional Radiology that it would be unlikely that a good tissue sample via percutaneous CT guided biopsy due to the size and location of the lesions. Therefore, Pulmonology was consulted to discuss options for a bronchoscopy to attempt to obtain a sample from the lung. An additional concern for his liver biopsy was the fact that there is unknown PE and was on therapeutic Lovenox and this will not be held in order to get the sample and that patient was at significant risk of bleeding. Dr. Arias spoke with patient on the evening of 08/23/2018. Patient became very angry with Dr. Arias at that time, because per the patient he came too early, as he initially planned to come at 9:00 a.m. the following morning. He told Dr. Arias that under no circumstances would he allow anything to be put in his throat. Dr. Arias informed that he was still be willing to do the bronchoscopy if the patient were to change his mind. The following morning after discussion between the patient and Heme/Onc, it was determined that we would attempt to do CT guided biopsy of the liver. The patient did consent for the procedure, however, would not consent to blood products. At that time, it was decided not to complete the liver biopsy as it would be unsafe to do the procedure as the low chance of getting a good sample was not outweighed by the risk in obtaining it. The patient again threatened to leave AMA, as he was told that we could not treat him until we had a tissue biopsy which would need to be completed with bronchoscopy. At that time, I informed the patient that in his medical team's opinion it was a bad idea for him to leave the hospital without a tissue diagnosis and plan given his already complicated state of disease. I advised him that leaving against medical advice would put him at risk for multiple complications up to and including . I advised that as he would have to leave the hospital on Eliquis and would be at risk for bleeding from multiple to include anywhere associated with tumor and intracranial bleeds due to being on that medicine. Additionally, patient is not being monitored on amiodarone, which was started at [facility] due to a run of SVT noted on tele there and he was at risk for arrhythmia in addition to bleeding. I also advised that patient with his risks for continued symptomatic superior vena cava syndrome and potential airway obstruction. Patient demanded to leave the hospital on amiodarone as currently written and Eliquis. The patient clearly understood the risks, both he and his were present for all conversations. I advised the patient that the entirety of the medical team was willing to continue treatment if he were to choose to continue workup and subsequent treatment afford to return to this facility. I gave him detailed return precautions, specifically regarding bleeds, falls and other risks associated with Eliquis. Return instructions regarding arrhythmias to include chest pain, shortness of breath, dizziness. After these instructions was given in a handwritten prescription for Eliquis and amiodarone are both with 1-week supply. Patient proceeded to leave against medical advice. DISCHARGE INSTRUCTIONS: 1. Location: Unknown as patient left against medical advice. 2. Follow up with a physician immediately. MATT
== END 2018-08-24 16:47 | disposition left against medical advice (07) | DRG 299 ==
LOC: ERS 12:24 → ONC 15:20 → 2NO 17:58
PROVIDERS: ADMIT Family Medicine; ATTEND Family Medicine
DX: I87.1 Compression of vein (principal); I26.99 Other pulmonary embolism without acute cor pulmonale; C34.90 Malignant neoplasm of unspecified part of unspecified bronchus or lung; C78.7 Secondary malignant neoplasm of liver and intrahepatic bile duct; C79.70 Secondary malignant neoplasm of unspecified adrenal gland; I47.1 Supraventricular tachycardia; F17.210 Nicotine dependence, cigarettes, uncomplicated; I48.91 Unspecified atrial fibrillation; Z80.1 Family history of malignant neoplasm of trachea, bronchus and lung; Z80.8 Family history of malignant neoplasm of other organs or systems
CPT/HCPCS: 36415; 74177; 77014; 77290; 77334; 80053; 82330; 82553; 82803; 83615; 84484; 85025; 85520; 85610; 85730; 93005; 94640; 94760; A4216; J1650; J2920; J7620